=== PATIENT | female | born 1960 | race Two or more races ===

== ENCOUNTER 2017-10-07 13:45 | Inpatient (IN) | payer OTHER ==
[2017-10-07] MEDS ORDERED: ACETAMINOPHEN 325 MG TAB PO ×2 (16:00→21:00)
[2017-10-07 16:53] LABS: TROPONIN-I < 0.012 ng/ml (0.00-0.12)
[2017-10-07] MEDS: ASPIRIN 81 MG TAB PO (17:57)
[2017-10-07] MEDS ORDERED: NACL 0.9% 3 ML SYG IV (21:00)
[2017-10-07] MEDS ORDERED: DOCUSATE SODIUM 100 MG CAP PO (21:00)
[2017-10-07] MEDS ORDERED: MAGNESIUM HYDROXIDE 30ML CUP PO (21:00)
[2017-10-07] MEDS ORDERED: ONDANSETRON 4 MG INJ IV (21:00)
[2017-10-07] MEDS: GUAIFENESIN/DM 5ML CUP PO (23:25)
[2017-10-07 23:38] LABS: TROPONIN-I < 0.012 ng/ml (0.00-0.12)
[2017-10-08] MEDS: PANTOPRAZOLE 40 MG INJ IV (05:53)
[2017-10-08 07:13] LABS: TROPONIN-I < 0.012 ng/ml (0.00-0.12)
[2017-10-08] MEDS: ENOXAPARIN 40 MG/0.4 ML SYG SC (08:12)
[2017-10-08] MEDS: ASPIRIN 81 MG TAB PO (08:12)
[2017-10-08 13:45] LABS: ADD MAN DIFF? NO
[2017-10-08 13:47] LABS: BASOPHILS % 0.3 % (0.0-2.0); EOSINOPHILS # 0.2 10^3/ul (0.0-0.5); EOSINOPHILS % 1.9 % (0.0-7.0); HEMATOCRIT 34.3 % (37.0-47.0); HEMOGLOBIN 10.7 g/dl (12.0-16.0); LYMPHOCYTES % 37.5 % (15.0-51.0); MEAN CORPUSCULAR HEMOGLOBIN 24.5 pg (29.0-33.0); MEAN CORPUSCULAR HGB CONC 31.2 g/dl (32.0-37.0); MEAN CORPUSCULAR VOLUME 78.7 fl (82.0-101.0); MEAN PLATELET VOLUME 10.1 fl (7.4-10.4); MONOCYTE # 0.5 10^3/ul (0.3-0.9); MONOCYTES % 6.2 % (0.0-11.0); NEUTROPHIL # 4.3 10^3/ul (1.6-7.5); NEUTROPHILS % 53.7 % (39.0-77.0); PLATELET COUNT 351 10^3/UL (140-415); RED BLOOD COUNT 4.36 10^6/ul (4.20-5.40); RED CELL DISTRIBUTION WIDTH 13.5 % (11.5-14.5)
[2017-10-08 13:47] LABS: WHITE BLOOD COUNT 7.9 10^3/ul (4.8-10.8)
[2017-10-08 14:06] LABS: ALANINE AMINOTRANSFERASE 22 IU/L (13-69); ALBUMIN 3.6 g/dl (3.3-4.9); ALBUMIN/GLOBULIN RATIO 1.38; ALKALINE PHOSPHATASE 58 IU/L (42-121); ANION GAP 11 (8-16); ASPARTATE AMINO TRANSFERASE 18 IU/L (15-46); BILIRUBIN,INDIRECT 0.2 mg/dl (0-1.1); BILIRUBIN,TOTAL 0.2 mg/dl (0.2-1.3); BLOOD UREA NITROGEN 14 mg/dl (7-20); CALCIUM 9.3 mg/dl (8.4-10.2); CARBON DIOXIDE 26 mmol/L (21-31); CHLORIDE 109 mmol/L (97-110); CREATININE 0.96 mg/dl (0.44-1.00); GLUCOSE 90 mg/dl (70-220); POTASSIUM 3.9 mmol/L (3.5-5.1); SODIUM 142 mmol/L (135-144); TOTAL PROTEIN 6.2 g/dl (6.1-8.1)
[2017-10-08 14:15] LABS: B-TYPE NATRIURETIC PEPTIDE 135 PG/ML (0-125)
[2017-10-08 14:18] LABS: CHOL/HDL RATIO 3.6 RATIO; HDL CHOLESTEROL 52 mg/dl (37-92); LDL CHOLESTEROL,CALCULATED 121 mg/dl; TRIGLYCERIDES 88 mg/dl (0-149)
[2017-10-08 14:18] LABS: CHOLESTEROL 191 mg/dl (100-200)
[2017-10-08] MEDS: NAPROXEN 250 MG TAB PO (15:20)
[2017-10-08] MEDS: AMLODIPINE 10 MG TAB PO (15:20)
[2017-10-08] MEDS: PANTOPRAZOLE (EC) 40 MG TAB PO (17:09)
[2017-10-09] MEDS ORDERED: INFLUENZA VIRUS VACCINE 0.5 ML SYG IM* (13:00)
== END 2017-10-08 18:10 | disposition home or self-care (01) | DRG 313 ==
LOC: MS3 13:45
PROVIDERS: Internal Medicine Nephrology
DX: R07.9 Chest pain, unspecified (principal); I10 Essential (primary) hypertension; E66.9 Obesity, unspecified; Z68.28 Body mass index [BMI] 28.0-28.9, adult
CPT/HCPCS: 80053; 80061; 83880; 84484; 85025; 93005; 93306